=== PATIENT | female | born 1955 | race Caucasian/White ===

== ENCOUNTER 2020-02-10 17:33 | Outpatient (CLI) | payer BC ==
[2020-02-10 20:26] LABS: BASOPHILS % (AUTO) 1.4 %; MEAN PLATELET VOLUME 10.2 fL (7.9-10.8)
[2020-02-10 20:36] LABS: ALBUMIN 3.4 g/dL (3.2-5.5); ALBUMIN/GLOBULIN RATIO 1.3 (1.0-2.2); BILIRUBIN,TOTAL 0.3 mg/dL (0.2-1.0); CALCIUM 8.8 mg/dL (8.5-10.3); CREATININE 0.9 mg/dL (0.4-1.0); TOTAL PROTEIN 6.1 g/dL (6.7-8.2)
[2020-02-10 20:39] LABS: EOSINOPHILS % (AUTO) 2.7 %; LYMPHOCYTES % (AUTO) 14.6 %; MEAN CORPUSCULAR HGB CONC 32.4 g/dL (32.0-36.0); MEAN CORPUSCULAR VOLUME 95.9 fL (81.0-99.0); MONOCYTES % (AUTO) 11.2 %; NEUTROPHILS % (AUTO) 58.5 %; PLT - PLATELET COUNT 276 10^3/uL (130-450); RED CELL DISTRIBUTION WIDTH 17.8 % (12.0-15.0); WHITE BLOOD COUNT 4.4 x10^3/uL (4.8-10.8)
[2020-02-10 20:46] LABS: ABNORMAL LYMPHS % (MANUAL) 0 %
[2020-02-10 21:07] LABS: BAND NEUTROPHILS % (MANUAL) 3 %; BASOPHILS % (MANUAL) 1 %; LYMPHOCYTES # (MANUAL) 0.8 10^3/uL (1.5-3.5); LYMPHOCYTES % (MANUAL) 19 %; METAMYELOCYTES % (MANUAL) 3 %; MONOCYTES # (MANUAL) 0.3 10^3/uL (0.0-1.0); MYELOCYTES % (MANUAL) 1 %
[2020-02-10 21:10] LABS: PLATELET ESTIMATE, MANUAL NORMAL (130-450,000) (NORMAL); PLATELET MORPHOLOGY NORMAL APPEARANCE (NORMAL)
[2020-02-10 21:12] LABS: DIFFERENTIAL COMMENT MANUAL DIFFERENTIAL
== END 2020-02-10 17:34 | disposition home or self-care (01) ==
LOC: LAB.S 17:33
PROVIDERS: ATTEND Internal Medicine Hematology & Oncology
DX: C50.919 Malignant neoplasm of unspecified site of unspecified female breast (principal); C71.1 Malignant neoplasm of frontal lobe
CPT/HCPCS: 36415; 80053; 85025

== ENCOUNTER 2020-02-18 17:56 | Outpatient (CLI) | payer BC ==
[2020-02-18 20:02] LABS: BASOPHILS % (AUTO) 1.3 %; EOSINOPHILS % (AUTO) 3.9 %; HGB - HEMOGLOBIN 8.8 g/dL (12.0-16.0); LYMPHOCYTES % (AUTO) 19.4 %; MEAN CORPUSCULAR HEMOGLOBIN 33.3 pg (27.0-31.0); MEAN CORPUSCULAR HGB CONC 33.1 g/dL (32.0-36.0); MEAN CORPUSCULAR VOLUME 100.8 fL (81.0-99.0); MEAN PLATELET VOLUME 10.3 fL (7.9-10.8); MONOCYTES % (AUTO) 9.4 %; NEUTROPHILS % (AUTO) 60.1 %; PLT - PLATELET COUNT 237 10^3/uL (130-450); RED BLOOD COUNT 2.64 10^6/uL (4.20-5.40); WHITE BLOOD COUNT 5.5 x10^3/uL (4.8-10.8)
[2020-02-18 20:10] LABS: ABNORMAL LYMPHS % (MANUAL) 0 %
[2020-02-18 20:23] LABS: % IRON SATURATION 22 % (20-50); ALBUMIN 3.5 g/dL (3.2-5.5); ALBUMIN/GLOBULIN RATIO 1.4 (1.0-2.2); ALKALINE PHOSPHATASE 53 IU/L (42-121); ALT ALANINE AMINOTRANSFERASE 21 IU/L (10-60); AST ASPARTATE AMINOTRANSFERASE < 10 IU/L (10-42); BILIRUBIN,TOTAL 0.6 mg/dL (0.2-1.0); BUN - BLOOD UREA NITROGEN 15 mg/dL (6-20); CALCIUM 9.2 mg/dL (8.5-10.3); CARBON DIOXIDE - CO2 26 mmol/L (21-32); CHLORIDE 108 mmol/L (101-111); GLUCOSE 114 mg/dL (70-100); IRON 85 ug/dL (28-170); SODIUM 142 mmol/L (135-145); TOTAL IRON BINDING CAPACITY 395 ug/dL (250-450); TRANSFERRIN 282 mg/dL (192-382)
[2020-02-18 21:39] LABS: BAND NEUTROPHILS % (MANUAL) 2 %; BASOPHILS # (MANUAL) 0.1 10^3/uL (0-0.1); BASOPHILS % (MANUAL) 2 %; EOSINOPHILS # (MANUAL) 0.2 10^3/uL (0-0.7); LYMPHOCYTES # (MANUAL) 1.3 10^3/uL (1.5-3.5); LYMPHOCYTES % (MANUAL) 24 %; MONOCYTES # (MANUAL) 0.8 10^3/uL (0.0-1.0)
[2020-02-18 21:48] LABS: PLATELET ESTIMATE, MANUAL NORMAL (130-450,000) (NORMAL); PLATELET MORPHOLOGY NORMAL APPEARANCE (NORMAL)
[2020-02-18 21:49] LABS: DIFFERENTIAL COMMENT MANUAL DIFFERENTIAL
== END 2020-02-18 17:57 | disposition home or self-care (01) ==
LOC: LAB.S 17:56
PROVIDERS: ATTEND Internal Medicine Hematology & Oncology
DX: C50.919 Malignant neoplasm of unspecified site of unspecified female breast (principal); C71.1 Malignant neoplasm of frontal lobe; D64.81 Anemia due to antineoplastic chemotherapy
CPT/HCPCS: 36415; 80053; 82378; 82728; 83540; 84466; 85025

== ENCOUNTER 2020-02-24 18:10 | Outpatient (CLI) | payer BC ==
[2020-02-24 21:11] LABS: BASOPHILS % (AUTO) 1.1 %; HGB - HEMOGLOBIN 9.3 g/dL (12.0-16.0); LYMPHOCYTES % (AUTO) 9.4 %; MEAN CORPUSCULAR HEMOGLOBIN 34.1 pg (27.0-31.0); MEAN CORPUSCULAR HGB CONC 33.3 g/dL (32.0-36.0); MEAN CORPUSCULAR VOLUME 102.2 fL (81.0-99.0); MEAN PLATELET VOLUME 10.9 fL (7.9-10.8); MONOCYTES % (AUTO) 5.6 %; NEUTROPHILS % (AUTO) 75.2 %; PLT - PLATELET COUNT 169 10^3/uL (130-450); RED BLOOD COUNT 2.73 10^6/uL (4.20-5.40); RED CELL DISTRIBUTION WIDTH 23.1 % (12.0-15.0); WHITE BLOOD COUNT 8.3 x10^3/uL (4.8-10.8)
[2020-02-24 21:14] LABS: ABNORMAL LYMPHS % (MANUAL) 0 %
[2020-02-24 21:32] LABS: BAND NEUTROPHILS % (MANUAL) 1 %; LYMPHOCYTES # (MANUAL) 0.7 10^3/uL (1.5-3.5); LYMPHOCYTES % (MANUAL) 9 %; MONOCYTES # (MANUAL) 0.1 10^3/uL (0.0-1.0); PLATELET ESTIMATE, MANUAL NORMAL (130-450,000) (NORMAL)
[2020-02-24 21:33] LABS: DIFFERENTIAL COMMENT MANUAL DIFFERENTIAL
== END 2020-02-24 18:11 | disposition home or self-care (01) ==
LOC: LAB.S 18:10
PROVIDERS: ATTEND Internal Medicine Hematology & Oncology
DX: C50.919 Malignant neoplasm of unspecified site of unspecified female breast (principal); C71.1 Malignant neoplasm of frontal lobe
CPT/HCPCS: 36415; 80053; 85025

== ENCOUNTER 2020-03-02 18:21 | Outpatient (CLI) | payer BC ==
[2020-03-02 20:55] LABS: BASOPHILS % (AUTO) 0.7 %; EOSINOPHILS % (AUTO) 2.5 %; HGB - HEMOGLOBIN 8.8 g/dL (12.0-16.0); LYMPHOCYTES % (AUTO) 23.1 %; MEAN CORPUSCULAR HEMOGLOBIN 33.6 pg (27.0-31.0); MEAN CORPUSCULAR HGB CONC 32.4 g/dL (32.0-36.0); MEAN CORPUSCULAR VOLUME 103.8 fL (81.0-99.0); MEAN PLATELET VOLUME 10.6 fL (7.9-10.8); MONOCYTES % (AUTO) 2.8 %; NEUTROPHILS % (AUTO) 69.1 %; PLT - PLATELET COUNT 57 10^3/uL (130-450); RED BLOOD COUNT 2.62 10^6/uL (4.20-5.40); RED CELL DISTRIBUTION WIDTH 24.3 % (12.0-15.0); WHITE BLOOD COUNT 6.7 x10^3/uL (4.8-10.8)
[2020-03-02 21:05] LABS: ABNORMAL LYMPHS % (MANUAL) 0 %; BAND NEUTROPHILS % (MANUAL) 0 %
[2020-03-02 21:12] LABS: ALBUMIN 3.7 g/dL (3.2-5.5); ALBUMIN/GLOBULIN RATIO 1.3 (1.0-2.2); BILIRUBIN,TOTAL 0.8 mg/dL (0.2-1.0); CREATININE 0.7 mg/dL (0.4-1.0); TOTAL PROTEIN 6.5 g/dL (6.7-8.2)
[2020-03-02 21:37] LABS: EOSINOPHILS # (MANUAL) 0.3 10^3/uL (0-0.7); LYMPHOCYTES # (MANUAL) 1.6 10^3/uL (1.5-3.5); LYMPHOCYTES % (MANUAL) 24 %
[2020-03-02 21:39] LABS: PLATELET ESTIMATE, MANUAL DECREASED (<130,000) (NORMAL)
[2020-03-02 21:40] LABS: DIFFERENTIAL COMMENT MANUAL DIFFERENTIAL
== END 2020-03-02 18:22 | disposition home or self-care (01) ==
LOC: LAB.S 18:21
PROVIDERS: ATTEND Internal Medicine Hematology & Oncology
DX: C50.919 Malignant neoplasm of unspecified site of unspecified female breast (principal); C71.1 Malignant neoplasm of frontal lobe
CPT/HCPCS: 36415; 80053; 85025; 86300

== ENCOUNTER 2020-03-09 17:18 | Outpatient (CLI) | payer BC ==
[2020-03-09 20:19] LABS: BASOPHILS % (AUTO) 0.8 %; EOSINOPHILS % (AUTO) 3.8 %; HGB - HEMOGLOBIN 8.4 g/dL (12.0-16.0); LYMPHOCYTES % (AUTO) 23.8 %; MEAN CORPUSCULAR HEMOGLOBIN 35.9 pg (27.0-31.0); MEAN CORPUSCULAR HGB CONC 33.2 g/dL (32.0-36.0); MEAN CORPUSCULAR VOLUME 108.1 fL (81.0-99.0); MEAN PLATELET VOLUME 12.9 fL (7.9-10.8); MONOCYTES % (AUTO) 4.5 %; NEUTROPHILS % (AUTO) 66.3 %; PLT - PLATELET COUNT 54 10^3/uL (130-450); RED BLOOD COUNT 2.34 10^6/uL (4.20-5.40); RED CELL DISTRIBUTION WIDTH 25.4 % (12.0-15.0); WHITE BLOOD COUNT 2.7 x10^3/uL (4.8-10.8)
[2020-03-09 20:21] LABS: ABNORMAL LYMPHS % (MANUAL) 0 %; BAND NEUTROPHILS % (MANUAL) 0 %
[2020-03-09 20:26] LABS: ALBUMIN 3.9 g/dL (3.2-5.5); ALBUMIN/GLOBULIN RATIO 1.4 (1.0-2.2); BILIRUBIN,TOTAL 0.7 mg/dL (0.2-1.0); CALCIUM 8.8 mg/dL (8.5-10.3); CREATININE 1.1 mg/dL (0.4-1.0); TOTAL PROTEIN 6.7 g/dL (6.7-8.2)
[2020-03-09 20:33] LABS: EOSINOPHILS # (MANUAL) 0.1 10^3/uL (0-0.7); LYMPHOCYTES # (MANUAL) 0.6 10^3/uL (1.5-3.5); LYMPHOCYTES % (MANUAL) 23 %; MONOCYTES # (MANUAL) 0.1 10^3/uL (0.0-1.0); PLATELET ESTIMATE, MANUAL DECREASED (<130,000) (NORMAL); PLATELET MORPHOLOGY NORMAL APPEARANCE (NORMAL)
[2020-03-09 20:34] LABS: DIFFERENTIAL COMMENT MANUAL DIFFERENTIAL
== END 2020-03-09 17:19 | disposition home or self-care (01) ==
LOC: LAB.S 17:18
PROVIDERS: ATTEND Internal Medicine Hematology & Oncology
DX: C50.919 Malignant neoplasm of unspecified site of unspecified female breast (principal); C71.1 Malignant neoplasm of frontal lobe
CPT/HCPCS: 36415; 80053; 85025

== ENCOUNTER 2020-03-16 17:27 | Outpatient (CLI) | payer BC ==
[2020-03-16 20:08] LABS: BASOPHILS % (AUTO) 1.2 %; EOSINOPHILS % (AUTO) 7.1 %; HGB - HEMOGLOBIN 8.9 g/dL (12.0-16.0); LYMPHOCYTES % (AUTO) 29.4 %; MEAN CORPUSCULAR HEMOGLOBIN 36.5 pg (27.0-31.0); MEAN CORPUSCULAR HGB CONC 32.2 g/dL (32.0-36.0); MEAN CORPUSCULAR VOLUME 113.1 fL (81.0-99.0); MEAN PLATELET VOLUME 10.5 fL (7.9-10.8); MONOCYTES % (AUTO) 13.6 %; NEUTROPHILS % (AUTO) 43.4 %; PLT - PLATELET COUNT 195 10^3/uL (130-450); RED BLOOD COUNT 2.44 10^6/uL (4.20-5.40); WHITE BLOOD COUNT 3.2 x10^3/uL (4.8-10.8)
[2020-03-16 20:12] LABS: ALBUMIN 3.7 g/dL (3.2-5.5); ALBUMIN/GLOBULIN RATIO 1.4 (1.0-2.2); ALKALINE PHOSPHATASE 64 IU/L (42-121); ALT ALANINE AMINOTRANSFERASE 21 IU/L (10-60); AST ASPARTATE AMINOTRANSFERASE < 10 IU/L (10-42); BILIRUBIN,TOTAL 0.5 mg/dL (0.2-1.0); BUN - BLOOD UREA NITROGEN 16 mg/dL (6-20); CALCIUM 8.9 mg/dL (8.5-10.3); CARBON DIOXIDE - CO2 23 mmol/L (21-32); CHLORIDE 104 mmol/L (101-111); GLUCOSE 96 mg/dL (70-100); SODIUM 140 mmol/L (135-145); TOTAL PROTEIN 6.4 g/dL (6.7-8.2)
[2020-03-16 20:16] LABS: ABNORMAL LYMPHS % (MANUAL) 0 %
[2020-03-16 20:27] LABS: BAND NEUTROPHILS % (MANUAL) 2 %; LYMPHOCYTES # (MANUAL) 1.3 10^3/uL (1.5-3.5); LYMPHOCYTES % (MANUAL) 42 %; MONOCYTES # (MANUAL) 0.3 10^3/uL (0.0-1.0)
[2020-03-16 20:28] LABS: DIFFERENTIAL COMMENT MANUAL DIFFERENTIAL; PLATELET ESTIMATE, MANUAL NORMAL (130-450,000) (NORMAL); PLATELET MORPHOLOGY NORMAL APPEARANCE (NORMAL)
== END 2020-03-16 17:28 | disposition home or self-care (01) ==
LOC: LAB.S 17:27
PROVIDERS: ATTEND Internal Medicine Hematology & Oncology
DX: C50.919 Malignant neoplasm of unspecified site of unspecified female breast (principal); C71.1 Malignant neoplasm of frontal lobe
CPT/HCPCS: 36415; 80053; 85025

== ENCOUNTER 2020-03-23 17:29 | Outpatient (CLI) | payer BC ==
[2020-03-23 20:12] LABS: BASOPHILS % (AUTO) 1.7 %; EOSINOPHILS % (AUTO) 3.4 %; HGB - HEMOGLOBIN 9.5 g/dL (12.0-16.0); LYMPHOCYTES % (AUTO) 12.6 %; MEAN CORPUSCULAR HEMOGLOBIN 36.7 pg (27.0-31.0); MEAN CORPUSCULAR HGB CONC 32.3 g/dL (32.0-36.0); MEAN CORPUSCULAR VOLUME 113.5 fL (81.0-99.0); MEAN PLATELET VOLUME 10.3 fL (7.9-10.8); MONOCYTES % (AUTO) 8.2 %; NEUTROPHILS % (AUTO) 58.4 %; PLT - PLATELET COUNT 346 10^3/uL (130-450); RED BLOOD COUNT 2.59 10^6/uL (4.20-5.40); RED CELL DISTRIBUTION WIDTH 24.8 % (12.0-15.0); WHITE BLOOD COUNT 11.5 x10^3/uL (4.8-10.8)
[2020-03-23 20:36] LABS: ALBUMIN 3.7 g/dL (3.2-5.5); ALBUMIN/GLOBULIN RATIO 1.4 (1.0-2.2); ALKALINE PHOSPHATASE 56 IU/L (42-121); ALT ALANINE AMINOTRANSFERASE 14 IU/L (10-60); AST ASPARTATE AMINOTRANSFERASE < 10 IU/L (10-42); BILIRUBIN,TOTAL 0.7 mg/dL (0.2-1.0); BUN - BLOOD UREA NITROGEN 18 mg/dL (6-20); CALCIUM 8.9 mg/dL (8.5-10.3); CARBON DIOXIDE - CO2 26 mmol/L (21-32); CHLORIDE 106 mmol/L (101-111); CREATININE 0.9 mg/dL (0.4-1.0); GLUCOSE 118 mg/dL (70-100); SODIUM 141 mmol/L (135-145); TOTAL PROTEIN 6.4 g/dL (6.7-8.2)
[2020-03-23 20:59] LABS: ABNORMAL LYMPHS % (MANUAL) 1 %; BAND NEUTROPHILS % (MANUAL) 12 %; BASOPHILS # (MANUAL) 0.1 10^3/uL (0-0.1); BASOPHILS % (MANUAL) 1 %; EOSINOPHILS # (MANUAL) 0.2 10^3/uL (0-0.7); LYMPHOCYTES # (MANUAL) 0.6 10^3/uL (1.5-3.5); LYMPHOCYTES % (MANUAL) 4 %; METAMYELOCYTES % (MANUAL) 3 %; MONOCYTES # (MANUAL) 0.5 10^3/uL (0.0-1.0); MYELOCYTES % (MANUAL) 5 %; PROMYELOCYTES % (MANUAL) 2 %
[2020-03-23 21:00] LABS: DIFFERENTIAL COMMENT MANUAL DIFFERENTIAL; PLATELET ESTIMATE, MANUAL NORMAL (130-450,000) (NORMAL)
== END 2020-03-23 17:30 | disposition home or self-care (01) ==
LOC: LAB.S 17:29
PROVIDERS: ATTEND Internal Medicine Hematology & Oncology
DX: C50.919 Malignant neoplasm of unspecified site of unspecified female breast (principal); C71.1 Malignant neoplasm of frontal lobe
CPT/HCPCS: 36415; 80053; 85025

== ENCOUNTER 2020-03-30 17:21 | Outpatient (CLI) | payer BC ==
[2020-03-30 20:09] LABS: BASOPHILS # (AUTO) 0.2 10^3/uL (0.0-0.1); BASOPHILS % (AUTO) 0.9 %; EOSINOPHILS # (AUTO) 0.9 10^3/uL (0.0-0.7); LYMPHOCYTES # (AUTO) 1.4 10^3/uL (1.5-3.5); LYMPHOCYTES % (AUTO) 8.4 %; MEAN CORPUSCULAR HEMOGLOBIN 36.2 pg (27.0-31.0); MEAN CORPUSCULAR HGB CONC 31.5 g/dL (32.0-36.0); MEAN CORPUSCULAR VOLUME 114.9 fL (81.0-99.0); MEAN PLATELET VOLUME 10.1 fL (7.9-10.8); MONOCYTES # (AUTO) 0.8 10^3/uL (0.0-1.0); MONOCYTES % (AUTO) 4.7 %; NEUTROPHILS # (AUTO) 13.5 10^3/uL (1.5-6.6); NEUTROPHILS % (AUTO) 79.2 %; PLT - PLATELET COUNT 287 10^3/uL (130-450); RED BLOOD COUNT 2.76 10^6/uL (4.20-5.40); RED CELL DISTRIBUTION WIDTH 22.7 % (12.0-15.0); WHITE BLOOD COUNT 17.1 x10^3/uL (4.8-10.8)
[2020-03-30 20:25] LABS: ALBUMIN 3.7 g/dL (3.2-5.5); ALBUMIN/GLOBULIN RATIO 1.2 (1.0-2.2); BILIRUBIN,TOTAL 0.5 mg/dL (0.2-1.0); CALCIUM 9.1 mg/dL (8.5-10.3); TOTAL PROTEIN 6.7 g/dL (6.7-8.2)
[2020-03-30 21:28] LABS: PLATELET ESTIMATE, MANUAL NORMAL (130-450,000) (NORMAL); PLATELET MORPHOLOGY NORMAL APPEARANCE (NORMAL)
== END 2020-03-30 17:22 | disposition home or self-care (01) ==
LOC: LAB.S 17:21
PROVIDERS: ATTEND Internal Medicine Hematology & Oncology
DX: C50.919 Malignant neoplasm of unspecified site of unspecified female breast (principal); C71.1 Malignant neoplasm of frontal lobe
CPT/HCPCS: 36415; 80053; 85025; 86300

== ENCOUNTER 2020-04-06 17:24 | Outpatient (CLI) | payer BC ==
[2020-04-06 20:16] LABS: BASOPHILS # (AUTO) 0.1 10^3/uL (0.0-0.1); BASOPHILS % (AUTO) 1.4 %; EOSINOPHILS # (AUTO) 0.1 10^3/uL (0.0-0.7); HGB - HEMOGLOBIN 9.4 g/dL (12.0-16.0); LYMPHOCYTES # (AUTO) 1.3 10^3/uL (1.5-3.5); MEAN CORPUSCULAR HEMOGLOBIN 36.4 pg (27.0-31.0); MEAN CORPUSCULAR HGB CONC 31.6 g/dL (32.0-36.0); MEAN CORPUSCULAR VOLUME 115.1 fL (81.0-99.0); MONOCYTES # (AUTO) 0.3 10^3/uL (0.0-1.0); MONOCYTES % (AUTO) 6.3 %; NEUTROPHILS # (AUTO) 3.3 10^3/uL (1.5-6.6); NEUTROPHILS % (AUTO) 65.9 %; PLT - PLATELET COUNT 186 10^3/uL (130-450); RED BLOOD COUNT 2.58 10^6/uL (4.20-5.40); RED CELL DISTRIBUTION WIDTH 19.3 % (12.0-15.0)
[2020-04-06 20:25] LABS: ALBUMIN 3.7 g/dL (3.2-5.5); ALBUMIN/GLOBULIN RATIO 1.3 (1.0-2.2); BILIRUBIN,TOTAL 0.7 mg/dL (0.2-1.0); CALCIUM 8.9 mg/dL (8.5-10.3); CREATININE 0.7 mg/dL (0.4-1.0); TOTAL PROTEIN 6.5 g/dL (6.7-8.2)
[2020-04-06 21:28] LABS: PLATELET ESTIMATE, MANUAL NORMAL (130-450,000) (NORMAL)
== END 2020-04-06 17:25 | disposition home or self-care (01) ==
LOC: LAB.S 17:24
PROVIDERS: ATTEND Internal Medicine Hematology & Oncology
DX: C50.919 Malignant neoplasm of unspecified site of unspecified female breast (principal); C17.1 Malignant neoplasm of jejunum
CPT/HCPCS: 36415; 80053; 85025

== ENCOUNTER 2020-04-13 17:31 | Outpatient (CLI) | payer BC ==
[2020-04-13 19:58] LABS: BASOPHILS # (AUTO) 0.1 10^3/uL (0.0-0.1); BASOPHILS % (AUTO) 1.1 %; EOSINOPHILS % (AUTO) 0.4 %; HGB - HEMOGLOBIN 10.2 g/dL (12.0-16.0); LYMPHOCYTES # (AUTO) 1.4 10^3/uL (1.5-3.5); LYMPHOCYTES % (AUTO) 28.5 %; MEAN CORPUSCULAR HEMOGLOBIN 36.8 pg (27.0-31.0); MEAN CORPUSCULAR HGB CONC 32.4 g/dL (32.0-36.0); MEAN CORPUSCULAR VOLUME 113.7 fL (81.0-99.0); MEAN PLATELET VOLUME 10.9 fL (7.9-10.8); MONOCYTES # (AUTO) 0.1 10^3/uL (0.0-1.0); MONOCYTES % (AUTO) 2.3 %; NEUTROPHILS # (AUTO) 3.2 10^3/uL (1.5-6.6); NEUTROPHILS % (AUTO) 67.3 %; PLT - PLATELET COUNT 152 10^3/uL (130-450); RED BLOOD COUNT 2.77 10^6/uL (4.20-5.40); RED CELL DISTRIBUTION WIDTH 18.3 % (12.0-15.0); WHITE BLOOD COUNT 4.7 x10^3/uL (4.8-10.8)
[2020-04-13 20:19] LABS: ALBUMIN/GLOBULIN RATIO 1.5 (1.0-2.2); BILIRUBIN,TOTAL 0.4 mg/dL (0.2-1.0); CREATININE 0.9 mg/dL (0.4-1.0); TOTAL PROTEIN 6.7 g/dL (6.7-8.2)
[2020-04-13 21:06] LABS: PLATELET ESTIMATE, MANUAL NORMAL (130-450,000) (NORMAL); PLATELET MORPHOLOGY NORMAL APPEARANCE (NORMAL)
== END 2020-04-13 17:32 | disposition home or self-care (01) ==
LOC: LAB.S 17:31
PROVIDERS: ATTEND Internal Medicine Hematology & Oncology
DX: C50.919 Malignant neoplasm of unspecified site of unspecified female breast (principal); C71.1 Malignant neoplasm of frontal lobe
CPT/HCPCS: 36415; 80053; 85025

== ENCOUNTER 2020-04-21 19:31 | Outpatient (CLI) | payer BC ==
[2020-04-21 19:51] LABS: BASOPHILS % (AUTO) 0.3 %; EOSINOPHILS % (AUTO) 0.3 %; HGB - HEMOGLOBIN 10.4 g/dL (12.0-16.0); LYMPHOCYTES % (AUTO) 21.3 %; MEAN CORPUSCULAR HEMOGLOBIN 38.4 pg (27.0-31.0); MEAN CORPUSCULAR HGB CONC 33.3 g/dL (32.0-36.0); MEAN CORPUSCULAR VOLUME 115.1 fL (81.0-99.0); MEAN PLATELET VOLUME 11.4 fL (7.9-10.8); NEUTROPHILS % (AUTO) 68.4 %; PLT - PLATELET COUNT 75 10^3/uL (130-450); RED BLOOD COUNT 2.71 10^6/uL (4.20-5.40); RED CELL DISTRIBUTION WIDTH 17.2 % (12.0-15.0); WHITE BLOOD COUNT 7.1 x10^3/uL (4.8-10.8)
[2020-04-21 20:07] LABS: ALBUMIN 4.1 g/dL (3.2-5.5); ALBUMIN/GLOBULIN RATIO 1.5 (1.0-2.2); BILIRUBIN,TOTAL 0.6 mg/dL (0.2-1.0); CALCIUM 9.6 mg/dL (8.5-10.3); TOTAL PROTEIN 6.9 g/dL (6.7-8.2)
[2020-04-21 21:00] LABS: PLATELET ESTIMATE, MANUAL DECREASED (<130,000) (NORMAL); PLATELET MORPHOLOGY NORMAL APPEARANCE (NORMAL)
[2020-04-21 21:01] LABS: DIFFERENTIAL COMMENT MANUAL DIFFERENTIAL
== END 2020-04-21 19:32 | disposition home or self-care (01) ==
LOC: LAB 19:31
PROVIDERS: ATTEND Internal Medicine Hematology & Oncology
DX: C50.919 Malignant neoplasm of unspecified site of unspecified female breast (principal); C71.1 Malignant neoplasm of frontal lobe
CPT/HCPCS: 36415; 80053; 85025

== ENCOUNTER 2020-04-27 17:31 | Outpatient (CLI) | payer BC ==
[2020-04-27 20:03] LABS: BASOPHILS # (AUTO) 0.1 10^3/uL (0.0-0.1); BASOPHILS % (AUTO) 2.2 %; HGB - HEMOGLOBIN 10.2 g/dL (12.0-16.0); LYMPHOCYTES # (AUTO) 0.7 10^3/uL (1.5-3.5); LYMPHOCYTES % (AUTO) 21.7 %; MEAN CORPUSCULAR HEMOGLOBIN 37.6 pg (27.0-31.0); MEAN CORPUSCULAR HGB CONC 32.6 g/dL (32.0-36.0); MEAN CORPUSCULAR VOLUME 115.5 fL (81.0-99.0); MEAN PLATELET VOLUME 10.8 fL (7.9-10.8); MONOCYTES # (AUTO) 0.2 10^3/uL (0.0-1.0); MONOCYTES % (AUTO) 5.1 %; NEUTROPHILS # (AUTO) 2.2 10^3/uL (1.5-6.6); NEUTROPHILS % (AUTO) 69.4 %; PLT - PLATELET COUNT 69 10^3/uL (130-450); RED BLOOD COUNT 2.71 10^6/uL (4.20-5.40); WHITE BLOOD COUNT 3.1 x10^3/uL (4.8-10.8)
[2020-04-27 20:17] LABS: ALBUMIN 3.9 g/dL (3.2-5.5); ALBUMIN/GLOBULIN RATIO 1.2 (1.0-2.2); BILIRUBIN,TOTAL 0.7 mg/dL (0.2-1.0); CALCIUM 9.1 mg/dL (8.5-10.3); CREATININE 0.9 mg/dL (0.4-1.0); TOTAL PROTEIN 7.1 g/dL (6.7-8.2)
[2020-04-27 21:03] LABS: PLATELET ESTIMATE, MANUAL DECREASED (<130,000) (NORMAL); PLATELET MORPHOLOGY NORMAL APPEARANCE (NORMAL)
[2020-04-27 21:04] LABS: DIFFERENTIAL COMMENT MANUAL=AUTO DIFF
== END 2020-04-27 17:32 | disposition home or self-care (01) ==
LOC: LAB.S 17:31
PROVIDERS: ATTEND Internal Medicine Hematology & Oncology
DX: C50.919 Malignant neoplasm of unspecified site of unspecified female breast (principal); C71.1 Malignant neoplasm of frontal lobe
CPT/HCPCS: 36415; 80053; 85025

== ENCOUNTER 2020-05-24 18:11 | Outpatient (CLI) | payer BC ==
[2020-05-24 20:12] LABS: BASOPHILS # (AUTO) 0.1 10^3/uL (0.0-0.1); BASOPHILS % (AUTO) 0.8 %; EOSINOPHILS # (AUTO) 0.1 10^3/uL (0.0-0.7); EOSINOPHILS % (AUTO) 1.1 %; HGB - HEMOGLOBIN 10.9 g/dL (12.0-16.0); LYMPHOCYTES # (AUTO) 1.6 10^3/uL (1.5-3.5); LYMPHOCYTES % (AUTO) 20.4 %; MEAN CORPUSCULAR HEMOGLOBIN 35.7 pg (27.0-31.0); MEAN CORPUSCULAR HGB CONC 32.2 g/dL (32.0-36.0); MEAN CORPUSCULAR VOLUME 111.1 fL (81.0-99.0); MEAN PLATELET VOLUME 10.5 fL (7.9-10.8); MONOCYTES # (AUTO) 0.6 10^3/uL (0.0-1.0); MONOCYTES % (AUTO) 8.3 %; NEUTROPHILS # (AUTO) 5.2 10^3/uL (1.5-6.6); NEUTROPHILS % (AUTO) 68.9 %; PLT - PLATELET COUNT 149 10^3/uL (130-450); RED BLOOD COUNT 3.05 10^6/uL (4.20-5.40); RED CELL DISTRIBUTION WIDTH 14.6 % (12.0-15.0); WHITE BLOOD COUNT 7.6 x10^3/uL (4.8-10.8)
[2020-05-24 20:33] LABS: ALBUMIN 3.9 g/dL (3.2-5.5); ALBUMIN/GLOBULIN RATIO 1.3 (1.0-2.2); BILIRUBIN,TOTAL 0.4 mg/dL (0.2-1.0); CALCIUM 9.3 mg/dL (8.5-10.3); CREATININE 0.9 mg/dL (0.4-1.0)
[2020-05-24 21:14] LABS: PLATELET MORPHOLOGY NORMAL APPEARANCE (NORMAL)
[2020-05-24 21:15] LABS: PLATELET ESTIMATE, MANUAL NORMAL (130-450,000) (NORMAL)
== END 2020-05-24 18:12 | disposition home or self-care (01) ==
LOC: LAB.S 18:11
PROVIDERS: ATTEND Internal Medicine Hematology & Oncology
DX: C50.919 Malignant neoplasm of unspecified site of unspecified female breast (principal); C71.1 Malignant neoplasm of frontal lobe
CPT/HCPCS: 36415; 80053; 85025

== ENCOUNTER 2020-06-17 15:42 | Outpatient (CLI) | payer BC | END 2020-06-17 15:43 | disposition short-term general hospital (02) | LOC: EMS 15:42 | PROVIDERS: ATTEND Surgery | DX: R56.9 Unspecified convulsions (principal) | CPT/HCPCS: A0425; A0427 ==

== ENCOUNTER 2020-06-26 08:00 | Outpatient (CLI) | payer BC | END 2020-06-26 08:01 | disposition E | LOC: EMS 08:00 ==